=== PATIENT | female | born 1995 | race African-American/Black ===

== ENCOUNTER 2018-12-14 13:53 | Emergency (ER) | payer BC ==
--- NOTE | 2018-12-14 15:11 | ER Document Report ---
ED Medical Screen (RME) - General Chief Complaint: OB Problem (<20wks) Stated Complaint: ABDOMINAL PAIN WITH Time Seen by Provider: 12/14/18 15:07 Mode of Arrival: Ambulatory Information source: Patient, [facility] Records Notes: 23-year-old female at approximately 7 weeks per last menstrual period which was October 25, 2018 presents with complaint of abdominal cramping that started today. Patient also reports some light pink bleeding that she has had intermittently. Patient had a previous miscarriage 2 years ago. She [facility]. I have greeted and performed a rapid initial assessment of this patient. A comprehensive ED assessment and evaluation of the patient, analysis of test results and completion of medical decision making process we will be contacted by additional ED providers. PHYSICAL EXAMINATION: Vital signs reviewed GENERAL: Well-appearing, well-nourished and in no acute distress. LUNGS: No respiratory distress Musculoskeletal: Normal range of motion NEUROLOGICAL: Normal speech, normal gait. PSYCH: Normal mood, normal affect. SKIN: Warm, Dry, normal turgor, no rashes or lesions noted. TRAVEL OUTSIDE OF THE [place] IN LAST 30 DAYS: No - HPI Onset: This morning Onset/Duration: Gradual Quality of pain: Cramping Severity: Mild Associated Symptoms: Abdominal pain, Nausea, Vaginal bleeding, Vomiting Exacerbated by: Denies Relieved by: Denies Similar symptoms previously: Yes Recently seen / treated by doctor: No - Related Data Smoking: Non-smoker Frequency of alcohol use: None Drug Abuse: None Allergies/Adverse Reactions: No Known Allergies Allergy (Verified 12/14/18 13:56) Physical Exam - Vital signs Vitals: Temp Pulse Resp BP Pulse Ox 99.4 F 65 18 142/81 H 99 12/14/18 14:05 12/14/18 14:05 12/14/18 14:05 12/14/18 14:05 12/14/18 14:05 Course - Vital Signs Vital signs: Temp Pulse Resp BP Pulse Ox 99.4 F 65 18 142/81 H 99 12/14/18 14:05 12/14/18 14:05 12/14/18 14:05 12/14/18 14:05 12/14/18 14:05
[2018-12-14] MEDS ORDERED: METOCLOPRAMIDE HCL INJ/PF 10 MG/2 ML SDV IV ONE (17:08)
[2018-12-14] MEDS ORDERED: DIPHENHYDRAMINE HCL 50 MG/ML VIAL IV ONE (17:08)
[2018-12-14] MEDS ORDERED: NORMAL SALINE 1000 ML 1,000 ML IV ONE ×2 (17:08→19:38)
--- NOTE | 2018-12-14 17:09 | ER Document Report ---
ED GI/ - General Chief Complaint: OB Problem (<20wks) Stated Complaint: ABDOMINAL PAIN WITH Time Seen by Provider: 12/14/18 15:07 Primary Care Provider: [facility] [Provider Group] - Follow up as needed Mode of Arrival: Ambulatory Notes: Patient presents G2P 07 weeks complaining of pelvic cramping that started today with spotting. Patient does report some nausea and vomiting. Patient has not had an ultrasound to confirm her thus far. Patient denies any concerns about sexually transmitted infections. TRAVEL OUTSIDE OF THE [place] IN LAST 30 DAYS: No - HPI Patient complains to provider of: Pelvic pain, , Vaginal bleeding. No: Vaginal discharge Onset: This morning Quality of pain: Cramping Pain Level: 2 Location: Pelvis Vaginal bleeding (Compared to normal period): Spotting Menstrual period history: Sexual history: Active Associated symptoms: Nausea, Vomiting. denies: Dysuria, Fever, Urinary hesitancy, Urinary frequency Exacerbated by: Denies Relieved by: Denies Similar symptoms previously: No Recently seen / treated by doctor: No - Related Data Allergies/Adverse Reactions: No Known Allergies Allergy (Verified 12/14/18 13:56) Past Medical History - General Information source: Patient, [facility] Records Last Menstrual Period: 10/25/2018 - Social History Smoking Status: Never Smoker Frequency of alcohol use: None Drug Abuse: None Occupation: Retail Family History: Reviewed & Not Pertinent Patient has suicidal ideation: No Patient has homicidal ideation: No Renal/ Medical History: Denies: Hx Peritoneal Dialysis GI Medical History: Reports: Hx Gastroesophageal Reflux Disease Surgical Hx: Negative Review of Systems - Review of Systems Constitutional: No symptoms reported. denies: Fever EENT: No symptoms reported Cardiovascular: No symptoms reported. denies: Chest pain Respiratory: No symptoms reported Gastrointestinal: Abdominal pain, Nausea, Vomiting. denies: Diarrhea Genitourinary: No symptoms reported. denies: Dysuria, Flank pain Female Genitourinary: , Vaginal bleeding Musculoskeletal: No symptoms reported. denies: Back pain Skin: No symptoms reported Hematologic/Lymphatic: No symptoms reported Neurological/Psychological: No symptoms reported Physical Exam - Vital signs Vitals: Temp Pulse Resp BP Pulse Ox 99.4 F 65 18 142/81 H 99 12/14/18 14:05 12/14/18 14:05 12/14/18 14:05 12/14/18 14:05 12/14/18 14:05 - General General appearance: Appears well, Alert In distress: None - HEENT Head: Normocephalic, Atraumatic Eyes: Normal Conjunctiva: Normal Nasal: Normal Mouth/Lips: Normal Neck: Normal, Supple. No: Lymphadenopathy - Respiratory Respiratory status: No respiratory distress Chest status: Nontender Breath sounds: Normal. No: Rales, Rhonchi, Stridor, Wheezing Chest palpation: Normal - Cardiovascular Rhythm: Regular Heart sounds: S1 appreciated, S2 appreciated Murmur: No - Abdominal Inspection: Normal Distension: No distension Bowel sounds: Normal Tenderness: Tender - right lower pelvic, suprapubic area Organomegaly: No organomegaly - Back Back: Normal, Nontender. No: CVA tenderness - Extremities General upper extremity: Normal inspection, Normal strength General lower extremity: Normal inspection, Normal strength - Neurological Neuro grossly intact: Yes Cognition: Normal Sanford Coma Scale Eye Opening: Spontaneous Nessa Coma Scale Verbal: Oriented Nessa Coma Scale Motor: Obeys Commands Sanford Coma Scale Total: 15 - Psychological Associated symptoms: Normal affect, Normal mood - Skin Skin Temperature: Warm Skin Moisture: Dry Skin Color: Normal Course - Re-evaluation Re-evalutation: 12/14/18 21:20 Abdomen soft, no guarding. Patient nontoxic in appearance. Patient with UTI. Culture will be obtained. Patient encouraged to follow-up with vertical lathe operator for further evaluation. Patient states nausea is resolved at this time. Patient presents with abdominal pain without signs of peritonitis or other life- threatening or serious etiology. Patient appears stable for discharge and has been instructed to return immediately if the symptoms worsen in any way for reevaluation. The patient has been instructed to return if the symptoms worsen or change in any way. - Vital Signs Vital signs: Temp Pulse Resp BP Pulse Ox 97.9 F 61 18 128/68 H 100 12/14/18 21:27 12/14/18 21:27 12/14/18 21:27 12/14/18 21:27 12/14/18 21:27 - Laboratory Result Diagrams: 12/14/18 17:40 12/14/18 17:40 Laboratory results interpreted by me: 12/14/18 12/14/18 16:26 17:40 Beta HCG, Quant 89537.00 H Urine Ketones 80 H Urine Blood SMALL H Urine Urobilinogen 4.0 H Ur Leukocyte Esterase TRACE H Labs- Entire Visit 12/14/18 12/14/18 12/14/18 16:26 16:26 17:40 WBC 6.8 RBC 4.62 Hgb 14.6 Hct 42.3 MCV 92 MCH 31.5 MCHC 34.4 RDW 13.0 Plt Count 320 Seg Neutrophils % 61.8 Lymphocytes % 29.0 Monocytes % 8.1 Eosinophils % 0.4 Basophils % 0.7 Absolute Neutrophils 4.2 Absolute Lymphocytes 2.0 Absolute Monocytes 0.5 Absolute Eosinophils 0.0 Absolute Basophils 0.0 Sodium Potassium Chloride Carbon Dioxide Anion Gap BUN Creatinine Est GFR ( Amer) Est GFR (Non-Af Amer) Glucose Calcium Beta HCG, Quant 67788.00 H Total Beta HCG POSITIVE Urine Color Urine Appearance Urine pH Ur Specific [place] Urine Protein Urine Glucose (UA) Urine Ketones Urine Blood Urine Nitrite Urine Bilirubin Urine Urobilinogen Ur Leukocyte Esterase Urine WBC (Auto) Urine RBC (Auto) Urine Bacteria (Auto) Squamous Epi Cells Auto Urine Mucus (Auto) Urine Ascorbic Acid Chlamydia DNA (PCR) N.gonorrhoeae DNA (PCR) Blood Type A POSITIVE Rhogam Indicated RHOGAM NOT INDICATED 12/14/18 12/14/18 12/14/18 17:40 17:40 17:40 WBC RBC Hgb Hct MCV MCH MCHC RDW Plt Count Seg Neutrophils % Lymphocytes % Monocytes % Eosinophils % Basophils % Absolute Neutrophils Absolute Lymphocytes Absolute Monocytes Absolute Eosinophils Absolute Basophils Sodium 137.6 Potassium 3.7 Chloride 104 Carbon Dioxide 22 Anion Gap 12 BUN 8 Creatinine 0.66 Est GFR ( Amer) > 60 Est GFR (Non-Af Amer) > 60 Glucose 85 Calcium 9.9 Beta HCG, Quant Total Beta HCG Urine Color TEVIN Urine Appearance SLIGHTLY-CLOUDY Urine pH 5.0 Ur Specific [place] 1.028 Urine Protein NEGATIVE Urine Glucose (UA) NEGATIVE Urine Ketones 80 H Urine Blood SMALL H Urine Nitrite NEGATIVE Urine Bilirubin NEGATIVE Urine Urobilinogen 4.0 H Ur Leukocyte Esterase TRACE H Urine WBC (Auto) 6 Urine RBC (Auto) 1 Urine Bacteria (Auto) TRACE Squamous Epi Cells Auto 9 Urine Mucus (Auto) MOD Urine Ascorbic Acid NEGATIVE Chlamydia DNA (PCR) NOT DETECTED N.gonorrhoeae DNA (PCR) NOT DETECTED Blood Type Rhogam Indicated - Diagnostic Test Radiology reviewed: Reports reviewed Discharge - Discharge Clinical Impression: Abdominal cramping affecting UTI (urinary tract infection) Qualifiers: Urinary tract infection type: site unspecified Hematuria presence: with hematuria Qualified Code(s): N39.0 - Urinary tract infection, site not specified Nausea & vomiting Qualifiers: Vomiting type: unspecified Vomiting Intractability: non-intractable Qualified Code(s): R11.2 - Nausea with vomiting, unspecified Condition: Stable Disposition: HOME, SELF-CARE Instructions: Antinausea Medication ([facility]), Cephalexin ([facility]), Pelvic Pain in ([facility]), Urinary Tract Infection ([facility]), Vomiting ([facility]) Additional Instructions: Return immediately for any new or worsening symptoms Followup with your primary care provider, call tomorrow to make a followup appointment Urine culture is pending, will call if you need any different treatment Prescriptions: Cephalexin Monohydrate [Keflex 500 mg Capsule] 500 mg PO Q6H 5 Days capsule Promethazine HCl [Phenergan 25 mg Tablet] 25 mg PO Q6H PRN #10 tablet PRN Reason: Forms: Return to Work Referrals: [facility] [Provider Group] - Follow up as needed
[2018-12-14 18:06] LABS: ABSOLUTE MONOCYTES (AUTO) 0.5 10^3/uL (0.1-1.4); ABSOLUTE NEUT (AUTO) 4.2 10^3/uL (1.7-8.2); BASOPHILS % (AUTO) 0.7 % (0-2); EOSINOPHILS % (AUTO) 0.4 % (0-6); HEMATOCRIT 42.3 % (36.0-47.0); HEMOGLOBIN 14.6 g/dL (12.0-15.5); MEAN CORPUSCULAR HEMOGLOBIN 31.5 pg (27.0-33.4); MEAN CORPUSCULAR HGB CONC 34.4 g/dL (32.0-36.0); MEAN CORPUSCULAR VOLUME 92 fl (80-97); MONOCYTES % (AUTO) 8.1 % (3-13); PLATELET COUNT 320 10^3/uL (150-450); RED BLOOD COUNT 4.62 10^6/uL (3.72-5.28); SEGMENTED NEUTROPHILS % (AUTO) 61.8 % (42-78); TOTAL CELLS COUNTED % (AUTO) 100 %; WHITE BLOOD COUNT 6.8 10^3/uL (4.0-10.5)
[2018-12-14 18:19] LABS: ANION GAP 12 (5-19); BLOOD UREA NITROGEN 8 mg/dL (7-20); CALCIUM 9.9 mg/dL (8.4-10.2); CARBON DIOXIDE 22 mmol/L (22-30); CHLORIDE 104 mmol/L (98-107); GLUCOSE 85 mg/dL (75-110); POTASSIUM 3.7 mmol/L (3.6-5.0); SODIUM 137.6 mmol/L (137-145)
[2018-12-14 18:31] LABS: APPEARANCE,URINE SLIGHTLY-CLOUDY; BILIRUBIN,URINE NEGATIVE (NEGATIVE); COLOR,URINE AMBER; GLUCOSE, URINE NEGATIVE (NEGATIVE); KETONES,URINE 80 mg/dL (NEGATIVE); LEUKOCYTE ESTERASE,URINE TRACE (NEGATIVE); NITRITE,URINE NEGATIVE (NEGATIVE); PROTEIN,URINE NEGATIVE (NEGATIVE); URINE SPECIFIC GRAVITY 1.028
[2018-12-14 19:31] LABS: CHLAM PCR NOT DETECTED (NOT DETECT); GON PCR NOT DETECTED (NOT DETECT)
--- NOTE | 2018-12-14 19:55 | RADIOLOGY REPORT (SQ) ---
EXAM DESCRIPTION: U/S OB TRANSVAGINAL W/O DOP COMPLETED DATE/TIME: 12/14/2018 7:32 pm REASON FOR STUDY: pelvic pain, spotting COMPARISON: None. TECHNIQUE: Transvaginal static and realtime grayscale images acquired of the pelvis. Additional paloma cted spectral and color Doppler images recorded. All images stored on PACs. [facility] [place]: 7 weeks 1 day LIMITATIONS: None. FINDINGS: FETUS: Single Living intrauterine . ULTRASOUND EGA: 10 weeks 0 days ULTRASOUND LOIDA: 08/02/2019 EFW: Not applicable less than 20 weeks. CRL: 0.96 cm FHR: 131 beats per minute. SURVEY: Too early to assess. AMNIOTIC FLUID: Adequate amount. PLACENTA: Not yet developed due to early gestation. SUBCHORIONIC BLEED: No SIZE OF BLEED: Not applicable. UTERUS: No masses. No anomalies. CERVICAL LENGTH: 3.2 cm Closed. RIGHT ADNEXA: Normal ovary with normal vascular flow. No adnexal free fluid. No adnexal masses. LEFT ADNEXA: Normal ovary with normal vascular flow. No adnexal free fluid. 2.1 cm cyst. FREE FLUID: None. OTHER: No other significant finding. IMPRESSION: LIVING INTRAUTERINE . EGA 7 weeks 0 days Trimester of : First - 0 to 13 weeks. TECHNICAL DOCUMENTATION: JOB ID: [id number] [employer]- All Rights Reserved rev Reading location - IP/workstation name: [email or web address]
[2018-12-14] MEDS ORDERED: CEPHALEXIN 500 MG CAPSULE PO ONE (21:19)
[2018-12-14 21:29] VITALS: BP 128/68
== END 2018-12-14 21:39 | disposition home or self-care (01) ==
LOC: ER 13:53
DX: O23.41 Unspecified infection of urinary tract in pregnancy, first trimester (principal); O26.891 Other specified pregnancy related conditions, first trimester; R31.9 Hematuria, unspecified; R10.2 Pelvic and perineal pain; O21.9 Vomiting of pregnancy, unspecified; O26.851 Spotting complicating pregnancy, first trimester; Z3A.01 Less than 8 weeks gestation of pregnancy
CPT/HCPCS: 99284; 96361; 96374; 96375; 86900; 86901; 36415; 87086; 84702; 85025; 80048; 81001; 87491; 87591; 76817; J1200; J2765; J7030

== ENCOUNTER 2019-07-21 15:22 | Outpatient (CLI) | payer BC, MEDICAID ==
[2019-07-21 15:55] LABS: APPEARANCE,URINE SLIGHTLY-CLOUDY; BILIRUBIN,URINE NEGATIVE (NEGATIVE); COLOR,URINE YELLOW; GLUCOSE, URINE NEGATIVE (NEGATIVE); KETONES,URINE NEGATIVE (NEGATIVE); LEUKOCYTE ESTERASE,URINE NEGATIVE (NEGATIVE); NITRITE,URINE NEGATIVE (NEGATIVE); PROTEIN,URINE NEGATIVE (NEGATIVE)
[2019-07-21 16:11] LABS: ABSOLUTE LYMPHOCYTES (AUTO) 1.7 10^3/uL (0.5-4.7); ABSOLUTE MONOCYTES (AUTO) 0.6 10^3/uL (0.1-1.4); ABSOLUTE NEUT (AUTO) 3.1 10^3/uL (1.7-8.2); BASOPHILS % (AUTO) 0.5 % (0-2); EOSINOPHILS % (AUTO) 0.7 % (0-6); HEMATOCRIT 37.4 % (36.0-47.0); LYMPHOCYTES % (AUTO) 31.9 % (13-45); MEAN CORPUSCULAR HEMOGLOBIN 30.8 pg (27.0-33.4); MEAN CORPUSCULAR HGB CONC 34.6 g/dL (32.0-36.0); MEAN CORPUSCULAR VOLUME 89 fl (80-97); PLATELET COUNT 266 10^3/uL (150-450); RED BLOOD COUNT 4.21 10^6/uL (3.72-5.28); RED CELL DISTRIBUTION WIDTH 12.8 % (11.5-14.0); SEGMENTED NEUTROPHILS % (AUTO) 56.9 % (42-78); TOTAL CELLS COUNTED % (AUTO) 100 %; WHITE BLOOD COUNT 5.5 10^3/uL (4.0-10.5)
[2019-07-21 16:15] LABS: URINE AMPHETAMINES SCREEN NEGATIVE; URINE BARBITURATES SCREEN NEGATIVE; URINE BENZODIAZEPINES SCREEN NEGATIVE; URINE COCAINE SCREEN NEGATIVE; URINE MARIJUANA (THC) SCREEN NEGATIVE; URINE METHADONE SCREEN NEGATIVE; URINE PHENCYCLIDINE SCREEN NEGATIVE
[2019-07-21 16:23] LABS: ALBUMIN 3.9 g/dL (3.5-5.0); ALKALINE PHOSPHATASE 142 U/L (38-126); ANION GAP 10 (5-19); ASPARTATE AMINO TRANSFERASE 15 U/L (14-36); BILIRUBIN,TOTAL 0.5 mg/dL (0.2-1.3); BLOOD UREA NITROGEN 7 mg/dL (7-20); CALCIUM 9.9 mg/dL (8.4-10.2); CARBON DIOXIDE 18 mmol/L (22-30); CHLORIDE 107 mmol/L (98-107); GLUCOSE 77 mg/dL (75-110); POTASSIUM 4.3 mmol/L (3.6-5.0); TOTAL PROTEIN 7.3 g/dL (6.3-8.2); URIC ACID 3.5 mg/dL (2.5-6.2)
[2019-07-21 17:26] LABS: URINE CREATININE 213.6 mg/dL (16-327); URINE PROTEIN 5.4 mg/dL (<12)
== END 2019-07-21 18:05 | disposition home or self-care (01) ==
LOC: LC 15:22
PROVIDERS: ATTEND Obstetrics & Gynecology
PROC: 4A1HXCZ Monitoring of Products of Conception, Cardiac Rate, External Approach (ICD-10-PCS; principal; 2019-07-21)
DX: O16.3 Unspecified maternal hypertension, third trimester (principal); Z3A.38 38 weeks gestation of pregnancy
CPT/HCPCS: 36415; 59025; 80053; 80307; 81001; 82570; 83615; 84156; 84550; 85025

== ENCOUNTER 2020-07-25 07:52 | Inpatient (IN) | payer BC, MEDICAID ==
[2020-07-22 11:02] LABS: ABSOLUTE EOSINOPHILS # (AUTO) 0.1 10^3/uL (0.0-0.6); ABSOLUTE LYMPHOCYTES (AUTO) 1.9 10^3/uL (0.5-4.7); ABSOLUTE MONOCYTES (AUTO) 0.6 10^3/uL (0.1-1.4); ABSOLUTE NEUT (AUTO) 3.3 10^3/uL (1.7-8.2); BASOPHILS % (AUTO) 0.5 % (0-2); HEMATOCRIT 34.3 % (36.0-47.0); HEMOGLOBIN 12.2 g/dL (12.0-15.5); LYMPHOCYTES % (AUTO) 32.5 % (13-45); MEAN CORPUSCULAR HEMOGLOBIN 32.5 pg (27.0-33.4); MEAN CORPUSCULAR HGB CONC 35.5 g/dL (32.0-36.0); MEAN CORPUSCULAR VOLUME 91 fl (80-97); MONOCYTES % (AUTO) 9.6 % (3-13); PLATELET COUNT 246 10^3/uL (150-450); RED BLOOD COUNT 3.75 10^6/uL (3.72-5.28); RED CELL DISTRIBUTION WIDTH 12.7 % (11.5-14.0); SEGMENTED NEUTROPHILS % (AUTO) 56.4 % (42-78); TOTAL CELLS COUNTED % (AUTO) 100 %; WHITE BLOOD COUNT 5.9 10^3/uL (4.0-10.5)
[2020-07-22 11:05] LABS: APPEARANCE,URINE SLIGHTLY-CLOUDY; BILIRUBIN,URINE NEGATIVE (NEGATIVE); COLOR,URINE YELLOW; GLUCOSE, URINE NEGATIVE (NEGATIVE); KETONES,URINE NEGATIVE (NEGATIVE); LEUKOCYTE ESTERASE,URINE NEGATIVE (NEGATIVE); NITRITE,URINE NEGATIVE (NEGATIVE); PROTEIN,URINE 30 mg/dL (NEGATIVE); URINE SPECIFIC GRAVITY 1.029
[2020-07-22 11:22] LABS: URINE AMPHETAMINES SCREEN NEGATIVE; URINE BARBITURATES SCREEN NEGATIVE; URINE BENZODIAZEPINES SCREEN NEGATIVE; URINE COCAINE SCREEN NEGATIVE; URINE METHADONE SCREEN NEGATIVE; URINE PHENCYCLIDINE SCREEN NEGATIVE
[2020-07-22 11:37] LABS: URINE MARIJUANA (THC) SCREEN UNCONFIRMED POSITIVE
[2020-07-25 09:23] LABS: APPEARANCE,URINE CLOUDY; BILIRUBIN,URINE NEGATIVE (NEGATIVE); COLOR,URINE AMBER; GLUCOSE, URINE NEGATIVE (NEGATIVE); KETONES,URINE NEGATIVE (NEGATIVE); LEUKOCYTE ESTERASE,URINE TRACE (NEGATIVE); NITRITE,URINE NEGATIVE (NEGATIVE); PROTEIN,URINE 30 mg/dL (NEGATIVE); URINE SPECIFIC GRAVITY 1.027
[2020-07-25 09:32] LABS: URINE AMPHETAMINES SCREEN NEGATIVE; URINE BARBITURATES SCREEN NEGATIVE; URINE BENZODIAZEPINES SCREEN NEGATIVE; URINE COCAINE SCREEN NEGATIVE; URINE METHADONE SCREEN NEGATIVE; URINE PHENCYCLIDINE SCREEN NEGATIVE
[2020-07-25 09:41] LABS: URINE MARIJUANA (THC) SCREEN UNCONFIRMED POSITIVE
[2020-07-25] MEDS ORDERED: OXYTOCIN 10 UNIT/ML VIAL ONE (10:11)
[2020-07-25] MEDS ORDERED: FENTANYL CITRATE INJ/PF 100 MCG/2 ML AMPUL ONE (10:11)
[2020-07-25] MEDS ORDERED: KETOROLAC TROMETHAMINE INJ/PF 30 MG/1 ML SDV ONE (10:11)
[2020-07-25] MEDS ORDERED: GLYCOPYRROLATE INJ 0.4 MG/2 ML VIAL ONE (10:11)
[2020-07-25] MEDS ORDERED: MIDAZOLAM 2 MG/2 ML INJ ONE (10:11)
[2020-07-25] MEDS ORDERED: OXYTOCIN/0.9 % SODIUM CHLORIDE 30 UNIT/500 ML RTUINJ ONE (10:11)
[2020-07-25] MEDS ORDERED: EPHEDRINE SULFATE INJ 50 MG/1 ML AMPULE ONE (10:12)
[2020-07-25] MEDS ORDERED: ACETAMINOPHEN 1,000 MG/100 ML RTUPB IV ONE (10:12)
[2020-07-25] MEDS ORDERED: ONDANSETRON HCL INJ/PF 4 MG/2 ML SDV ONE (10:12)
[2020-07-25] MEDS ORDERED: LIDOCAINE 0.5% INJ-PF (5 MG/ML) 50 ML SDV SUBCUT PRN (10:31)
[2020-07-25] MEDS ORDERED: LACTATED RINGERS 1000 ML IV PRN (10:31)
[2020-07-25] MEDS ORDERED: RINGERS SOLUTION,LACTATED 1,500 ML IV ONE (10:45)
[2020-07-25] MEDS ORDERED: CEFAZOLIN 2 GM/D5W RTU 2 GM/50 ML RTUPB IV PRN (11:00)
[2020-07-25] MEDS ORDERED: CEFAZOLIN 2 GM/D5W RTU 2 GM/50 ML RTUPB IV ONE (11:08)
[2020-07-25] MEDS ORDERED: MORPHINE SULFATE 10 MG/ML INJ IV PRN (11:12)
[2020-07-25] MEDS ORDERED: DIPHENHYDRAMINE HCL 50 MG/ML VIAL IV PRN (11:12)
[2020-07-25] MEDS ORDERED: OXYCODONE-ACETAMINOPHEN 5-325 MG TABLET PO PRN ×3 (11:12→11:36)
[2020-07-25] MEDS ORDERED: MEPERIDINE HCL/PF INJ 25 MG/1 ML DISP.SYRIN IV PRN (11:12)
[2020-07-25] MEDS ORDERED: PROMETHAZINE HCL INJ 25 MG/1 ML VIAL IV PRN ×4 (11:12→15:30)
[2020-07-25] MEDS ORDERED: FENTANYL CITRATE INJ/PF 100 MCG/2 ML AMPUL IV PRN ×3 (11:12)
[2020-07-25] MEDS ORDERED: MORPHINE SULFATE 10 MG/ML INJ IM PRN (11:36)
[2020-07-25] MEDS ORDERED: ACETAMINOPHEN 325 MG TABLET PO PRN (11:36)
[2020-07-25] MEDS ORDERED: SIMETHICONE 80 MG TAB.CHEW PO PRN (11:36)
[2020-07-25] MEDS ORDERED: OXYTOCIN/0.9 % SODIUM CHLORIDE 30 UNIT/500 ML RTUINJ IV PRN (11:36)
[2020-07-25] MEDS ORDERED: DIPH/PERTUSS(ACELL)/TETANUS VAC/PF 0.5 ML SYR (>=10YO) IM PRN ×2 (11:36→15:30)
[2020-07-25] MEDS ORDERED: ACETAMINOPHEN 1,000 MG/100 ML RTUPB IV PRN (11:36)
[2020-07-25] MEDS ORDERED: RINGERS SOLUTION,LACTATED 1,000 ML IV PRN (11:36)
[2020-07-25] MEDS ORDERED: MEASLES,MUMPS&RUBELLA VACC/PF 0.5 ML VIAL SUBCUT PRN ×2 (11:36→15:30)
--- NOTE | 2020-07-25 11:40 | Operative Report ---
Operative Report DATE OF SURGERY: 07/25/20 PREOPERATIVE DIAGNOSIS: IUP at term prior section POSTOPERATIVE DIAGNOSIS: Same OPERATION: Repeat low transverse delivery of viable SURGEON: GERARD ARCINIEGA ANESTHESIA: Spinal TISSUE REMOVED OR ALTERED: Placenta ESTIMATED BLOOD LOSS: Less than 900 cc PROCEDURE: The patient was taken to the operating room where spinal anesthesia was obtained and found to be adequate. She was then prepped and draped in the normal sterile fashion and placed in the dorsal supine position with a leftward tilt. A Pfannenstiel skin incision was then made and carried through to the underlying layers of the fascia with the scalpel. The fascia was incised in the midline and the incision extended laterally with the Gutierrez scissors. The superior aspect of the fascial incision was then grasped with Areli clamps elevated and the underlying rectus muscles dissected off bluntly. Attention was then turned to the inferior aspect of the fascial incision which in a similar fashion was grasped, tented up with Dimple clamps, and the rectus muscles dissected off bluntly. The rectus muscles were then in the midline and the peritoneum at the amount identified and entered bluntly. The peritoneal incision was then extended superiorly and inferiorly with good visualization of the bladder. [The bladder blade was inserted and the vesicouterine peritoneum identified grasped with Mal[place]ian pickups and entered sharply with the Metzenbaum scissors. His incision was then extended laterally with the Metzenbaum scissors and a bladder flap created digitally. The bladder blade was then reinserted and the lower uterine segment incised in a transverse fashion with the scalpel. The uterine incision was then extended bluntly. The bladder blade was removed and the 's head was delivered from cephalic presentation atraumatically. The nose and mouth were suctioned and the cord doubly clamped and cut. And the infant was handed off to waiting pediatricians. The placenta was then delivered manully and the uterus exteriorized and cleared of all clots and debris. The uterine incision was then repaired with 1-0 Vicryl in a running locked fashion. A second layer of the same suture was used to obtain hemostasis via imbrication of the initial layer. The uterus was returned to the patient's abdomen. The gutters were cleared of all clots and debris. All operative sites were noted to be hemostatic. The fascia was reapproximated with 0 Vicryl in a running fashion from each lateral edge to the midline. The patient tolerated the procedure well. Sponge lap needle and instrument counts are correct -2. 2 g of Ancef were given prior to skin incision. The patient was taken to the recovery area awake and in stable condition.
[2020-07-25] MEDS ORDERED: MORPHINE SULFATE 10 MG/ML INJ ONE (12:54)
[2020-07-25] MEDS ORDERED: PROMETHAZINE HCL INJ 25 MG/1 ML VIAL ONE (13:05)
[2020-07-25] MEDS ORDERED: HYDROMORPHONE HCL INJ/PF 2 MG/ML AMPULE ONE (13:05)
[2020-07-25] MEDS ORDERED: HYDROMORPHONE HCL INJ/PF 2 MG/ML AMPULE IV ONE (13:30)
[2020-07-25] MEDS ORDERED: KETOROLAC TROMETHAMINE INJ/PF 30 MG/1 ML SDV IV SCH (14:00)
[2020-07-25] MEDS: DOCUSATE SODIUM 100 MG CAPSULE PO SCH (18:04)
[2020-07-25] MEDS: KETOROLAC TROMETHAMINE INJ/PF 30 MG/1 ML SDV IV SCH (18:34)
[2020-07-26] MEDS: KETOROLAC TROMETHAMINE INJ/PF 30 MG/1 ML SDV IV SCH (02:26)
[2020-07-26] MEDS ORDERED: LACTATED RINGERS 1000 ML IV PRN (05:00)
[2020-07-26] MEDS ORDERED: LIDOCAINE 0.5% INJ-PF (5 MG/ML) 50 ML SDV SUBCUT PRN (05:00)
[2020-07-26] MEDS ORDERED: RINGERS SOLUTION,LACTATED 1,500 ML IV ONE (05:00)
[2020-07-26] MEDS ORDERED: CEFAZOLIN 2 GM/D5W RTU 2 GM/50 ML RTUPB IV PRN (05:00)
[2020-07-26 07:02] LABS: HEMATOCRIT 31.3 % (36.0-47.0); HEMOGLOBIN 11.1 g/dL (12.0-15.5); MEAN CORPUSCULAR HEMOGLOBIN 32.5 pg (27.0-33.4); MEAN CORPUSCULAR HGB CONC 35.3 g/dL (32.0-36.0); MEAN CORPUSCULAR VOLUME 92 fl (80-97); PLATELET COUNT 226 10^3/uL (150-450); RED CELL DISTRIBUTION WIDTH 12.6 % (11.5-14.0); WHITE BLOOD COUNT 7.8 10^3/uL (4.0-10.5)
[2020-07-26] MEDS: PRENATAL VITAMIN W DHA CAPSULE PO SCH (10:30)
[2020-07-26] MEDS: DOCUSATE SODIUM 100 MG CAPSULE PO SCH ×2 (10:30→17:51)
--- NOTE | 2020-07-26 11:41 | PDOC PROGRESS REPORT ---
Subjective-OB Progress Note for:: 07/26/20 - POD #1, pt doing well, UOB, voiding, no complaints, A+, Rubella immune, Physical Exam (OB) Vital Signs: Temp Pulse Resp BP Pulse Ox 97.9 F 80 16 132/76 H 98 07/26/20 10:00 07/26/20 10:00 07/26/20 10:00 07/26/20 10:00 07/26/20 10:00 Intake & Output 07/25/20 07/26/20 07/27/20 06:59 06:59 06:59 Intake Total 200 Output Total 1100 Balance -900 Weight 274 kg - General General Appearance: Appears well, Alert In distress: None - PIH/Pre-Eclampsia DTR's: 2 + Clonus: Negative Headache: Absent Epigastric Pain: No Visual Changes: No - Dressing Removed: No Incision: Dressing, Well Approximated Closure Type: Steri-Strips Note: dressing removed, steri-strips applied to help approximate incision - Maternal Morbidity 59. Maternal Morbidity (serious complications experinced by the mother associated with labor and delivery: None of the above - Lochia Lochia Amount: Scant < 10 ml Lochia Color: Rubra/Red - Abdomen Description: Soft, Round Hernia Present: No Fundal Description: Firm, Midline Fundal Height: u/u - u/2 - Respiratory Respiratory Status: No respiratory distress - Abdominal Inspection: Normal Distension: No distension Tenderness: Nontender - Genitourinary Genitourinary Note: voiding - Extremities Upper extremity: Normal inspection Lower extremities: Normal inspection - Neurological Cognition: Normal Orientation: AAOx4 - Psychological Associated symptoms: Normal affect, Normal mood - Skin Skin Temperature: Warm Skin Moisture: Dry Objective-Diagnostic Laboratory: 07/26/20 06:46 07/26/20 06:46 WBC 7.8 RBC 3.40 L Hgb 11.1 L Hct 31.3 L MCV 92 MCH 32.5 MCHC 35.3 RDW 12.6 Plt Count 226 Assessment and Plan(PN) - Assessment and Plan (1) S/P repeat low transverse Is this a current diagnosis for this admission?: Yes Plan:: Routine orders, ambulation encouraged - Time Spent with Patient Time with patient: Less than 15 minutes Medications reviewed and adjusted accordingly: Yes - Disposition Anticipated Discharge Disposition: Home, Self Care Anticipated Discharge Timeframe: within 48 hours
[2020-07-26] MEDS: IBUPROFEN 800 MG TABLET PO SCH ×3 (12:58→23:04)
[2020-07-26] MEDS ORDERED: NEOMY/BACITRAC ZN/POLY OINT 15 GM TP ONE (14:00)
[2020-07-27] MEDS: IBUPROFEN 800 MG TABLET PO SCH ×2 (05:18→12:16)
[2020-07-27] MEDS: PRENATAL VITAMIN W DHA CAPSULE PO SCH (09:10)
[2020-07-27] MEDS: DOCUSATE SODIUM 100 MG CAPSULE PO SCH (09:10)
--- NOTE | 2020-07-27 09:59 | PDOC DISCHARGE SUMMARY ---
Impression - Admit/DC Date/PCP Admission Date/Primary Care Provider: 07/25/20 07:52 Discharge Date: 07/27/20 - Doing well today, POD #2, desires discharge home. A+, - Discharge Diagnosis (1) S/P repeat low transverse Is this a current diagnosis for this admission?: Yes (2) Normal course Is this a current diagnosis for this admission?: Yes (3) Tetrahydrocannabinol (THC) dependence Is this a current diagnosis for this admission?: Yes - Additional Information Resuscitation Status: Full Code Discharge Diet: As Tolerated Discharge Activity: Activity As Tolerated, No Driving, No Lifting Over 10 Poun ds, Pelvic Rest Prescriptions: Ibuprofen [Motrin 800 mg Tablet] 800 mg PO Q6 #60 tablet Oxycodone HCl/Acetaminophen [Percocet 5-325 mg Tablet] 2 tab PO Q4HP PRN #30 tablet PRN Reason: Pain Scale Of 4 Home Medications: Pnv,Calcium 72/Iron/Folic Acid [ Plus Tablet] 1 each PO DAILY 07/22/20 Ibuprofen [Motrin 800 mg Tablet] 800 mg PO Q6 #60 tablet 07/27/20 Oxycodone HCl/Acetaminophen [Percocet 5-325 mg Tablet] 2 tab PO Q4HP PRN #30 tablet 07/27/20 HPI Reason(s) for Admission: Ceasarean Section-Repeat Procedures: Ultrasound Intrapartum Procedure(s): : Low Cervical, Transverse Hospital Course 59. Maternal Morbidity (serious complications experinced by the mother associated with labor and delivery: None of the above Results Laboratory Results: WBC 7.8 10^3/uL (4.0-10.5) 07/26/20 06:46 RBC 3.40 10^6/uL (3.72-5.28) L 07/26/20 06:46 Hgb 11.1 g/dL (12.0-15.5) L 07/26/20 06:46 Hct 31.3 % (36.0-47.0) L 07/26/20 06:46 MCV 92 fl (80-97) 07/26/20 06:46 MCH 32.5 pg (27.0-33.4) 07/26/20 06:46 MCHC 35.3 g/dL (32.0-36.0) 07/26/20 06:46 RDW 12.6 % (11.5-14.0) 07/26/20 06:46 Plt Count 226 10^3/uL (150-450) 07/26/20 06:46 Lymph % (Auto) 32.5 % (13-45) 07/22/20 10:15 [place] % (Auto) 9.6 % (3-13) 07/22/20 10:15 Eos % (Auto) 1.0 % (0-6) 07/22/20 10:15 Baso % (Auto) 0.5 % (0-2) 07/22/20 10:15 Absolute Neuts (auto) 3.3 10^3/uL (1.7-8.2) 07/22/20 10:15 Absolute Lymphs (auto) 1.9 10^3/uL (0.5-4.7) 07/22/20 10:15 Absolute Monos (auto) 0.6 10^3/uL (0.1-1.4) 07/22/20 10:15 Absolute Eos (auto) 0.1 10^3/uL (0.0-0.6) 07/22/20 10:15 Absolute Basos (auto) 0.0 10^3/uL (0.0-0.2) 07/22/20 10:15 Seg Neutrophils % 56.4 % (42-78) 07/22/20 10:15 Urine Color TEVIN 07/25/20 08:50 Urine Appearance CLOUDY 07/25/20 08:50 Urine pH 5.0 (5.0-9.0) 07/25/20 08:50 Ur Specific [place] 1.027 07/25/20 08:50 Urine Protein 30 mg/dL (NEGATIVE) H 07/25/20 08:50 Urine Glucose (UA) NEGATIVE mg/dL (NEGATIVE) 07/25/20 08:50 Urine Ketones NEGATIVE mg/dL (NEGATIVE) 07/25/20 08:50 Urine Blood NEGATIVE (NEGATIVE) 07/25/20 08:50 Urine Nitrite NEGATIVE (NEGATIVE) 07/25/20 08:50 Urine Bilirubin NEGATIVE (NEGATIVE) 07/25/20 08:50 Urine Urobilinogen 2.0 mg/dL (<2.0) H 07/25/20 08:50 Ur Leukocyte Esterase TRACE (NEGATIVE) H 07/25/20 08:50 Urine WBC (Auto) 4 /HPF 07/25/20 08:50 Urine RBC (Auto) 1 /HPF 07/25/20 08:50 Urine Bacteria (Auto) TRACE /HPF 07/22/20 10:15 Squamous Epi Cells Auto 30 /HPF 07/25/20 08:50 Urine Mucus (Auto) MANY /LPF 07/25/20 08:50 Urine Ascorbic Acid NEGATIVE (NEGATIVE) 07/25/20 08:50 Urine Opiates Screen NEGATIVE 07/25/20 08:50 Urine Methadone Screen NEGATIVE 07/25/20 08:50 Ur Barbiturates Screen NEGATIVE 07/25/20 08:50 Ur Phencyclidine Scrn NEGATIVE 07/25/20 08:50 Ur Amphetamines Screen NEGATIVE 07/25/20 08:50 U Benzodiazepines Scrn NEGATIVE 07/25/20 08:50 Urine Cocaine Screen NEGATIVE 07/25/20 08:50 U Marijuana (THC) Screen UNCONFIRMED POSITIVE 07/25/20 08:50 COVID-19 Source See comment 07/22/20 10:15 COVID-19 (ARNOLD) Not Detected (Not Detect) 07/22/20 10:15 Blood Type A POSITIVE 07/25/20 09:51 Antibody Screen NEGATIVE 07/25/20 09:51 Plan Plan of Treatment: d/c home, f/up with [facility] in one week for incision check Time Spent: Less than 30 Minutes
[2020-07-27 11:22] VITALS: BP 133/61
== END 2020-07-27 12:59 | disposition home or self-care (01) | DRG 787 ==
LOC: 2S 07:52 → 2N 07-26 16:47
PROVIDERS: ADMIT Obstetrics & Gynecology Gynecology; ATTEND Obstetrics & Gynecology Gynecology
PROC: 10D00Z1 Extraction of Products of Conception, Low, Open Approach (ICD-10-PCS; principal; 2020-07-25)
DX: O34.211 Maternal care for low transverse scar from previous cesarean delivery (principal); O99.324 Drug use complicating childbirth; F12.20 Cannabis dependence, uncomplicated; Z37.0 Single live birth; Z3A.39 39 weeks gestation of pregnancy
CPT/HCPCS: 1961; 36415; 80307; 81001; 85025; 85027; 86850; 86900; 86901; 87635; 94799; C9803; J0131; J0690; J1170; J1885; J2250; J2270; J2405; J2550; J2590; J3010; J3490; J7120